=== PATIENT | male | born 2000 | race African-American/Black ===

== ENCOUNTER 2025-06-09 20:37 | Emergency (ER) | payer OTHER ==
[~2025-06-09] VITALS: Ht 170.2 cm; Wt 108.7 kg
[2025-06-09 21:08] VITALS: TEMP 37; O2SAT 98
[2025-06-10] MEDS: IBUPROFEN 600MG TABLET PO ONE (00:51)
[2025-06-10] MEDS: BACITRACIN ZINC OINT UDPKT TOP ONE (02:22)
[2025-06-10] MEDS ORDERED: SULF1TAB48 MT (03:03)
[2025-06-10] MEDS ORDERED: IBUP-1455 MT (03:03)
[2025-06-10] MEDS ORDERED: BO1 TP (03:03)
[2025-06-10 03:32] VITALS: BP 132/75; PULSE 64; RESP 14; O2SAT 100
== END 2025-06-10 03:35 | disposition home or self-care (01) ==
LOC: ER 20:37
DX: S60.411A Abrasion of left index finger, initial encounter (principal); S67.10XA Crushing injury of unspecified finger(s), initial encounter; Z79.899 Other long term (current) drug therapy; Z88.0 Allergy status to penicillin; W23.0XXA Caught, crushed, jammed, or pinched between moving objects, initial encounter; Y93.89 Activity, other specified; Y92.89 Other specified places as the place of occurrence of the external cause; Y99.8 Other external cause status
CPT/HCPCS: 12001; 99283; 73140; Z7610